=== PATIENT | female | born 1970 | race Caucasian/White ===

== ENCOUNTER 2021-09-17 18:39 | Emergency (ER) | payer MEDICAID, SELFPAY ==
[2021-09-17 18:49] VITALS: BP 114/77; PULSE 92; RESP 15; TEMP 36.6; O2SAT 97; BMI 28.3
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
[2021-09-17 20:43] VITALS: RESP 16
== END 2021-09-17 20:44 | disposition home or self-care (01) ==
PROVIDERS: Emergency Provider Nurse Practitioner Family
DX: Z48.02 Encounter for removal of sutures (principal); S01.81XA Laceration without foreign body of other part of head, initial encounter; V89.2XXA Person injured in unspecified motor-vehicle accident, traffic, initial encounter
CPT/HCPCS: 99282

== ENCOUNTER 2022-09-04 04:00 | Emergency (ER) | payer MEDICARE, MEDICAID, SELFPAY ==
[2022-09-04] VITALS (10 sets, daily range): BP systolic 100–119; BP diastolic 65–76; PULSE 81–90; RESP 12–18; TEMP 37.1; O2SAT 91–96; BMI 30.1
--- NOTE | 2022-09-04 04:03 | XRR_ITS ---
PROCEDURE INFORMATION: Exam: XR Chest Exam date and time: 09/04/2022 4:10 AM Age: 51 years old Clinical indication: Chest pressure; Prior surgery; Surgery type: Cabg. Pacer; Patient HX: C/O chest pain; Additional info: Cp TECHNIQUE: Imaging protocol: Radiologic exam of the chest. Views: 1 view. COMPARISON: No relevant prior studies available. FINDINGS: Tubes, catheters and devices: The heart is large with CABG and vascular calcification with left-sided pacing device. Lungs: Unremarkable. No consolidation. Pleural spaces: Unremarkable. No pleural effusion. No pneumothorax. Heart/Mediastinum: Large heart, as above. Bones/joints: Unremarkable. XR/XR chest 1V portable [id number] IMPRESSION: No acute finding.
--- NOTE | 2022-09-04 04:03 | ECG_ITS ---
[facility] Test Date: 2022-09-04 Pat Name: Bailey Meza Department: Room: Gender: Female Probation Manager: : 1970 Requested By: Stanislav Longoria Order Number: [id number] Jyothi MD: Madelin Bradshaw M.D. Measurements Intervals [place] Rate: 84 P: 26 [place]: 177 QRS: -9 QRSD: 158 T: 70 QT: 432 QTc: 512 Interpretive Statements A sense V paced rhythm ELECTRONIC VENTRICULAR PACEMAKER ABNORMAL RHYTHM ECG No previous ECG available for comparison Electronically Signed On 09-04-2022 12:45:38 FITNESS/WELLNESS DIRECTOR by Madelin Bradshaw M.D. [id number]
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
[2022-09-04 04:17] LABS: Basophils # 0.1 10^3/uL (0.0-0.1); Basophils % 0.7 %; Eosinophils # 0.2 10^3/uL (0.0-0.8); Eosinophils % 2.3 %; Hematocrit 43.3 % (37.0-47.0); Hemoglobin 14.4 g/dL (11.5-15.3); Lymphocytes % 37.8 %; Mean Corpuscular HGB Conc 33.3 g/dL (30.0-36.0); Mean Corpuscular Hemoglobin 30.3 pg (28.0-34.0); Mean Corpuscular Volume 91.2 fl (81-99); Mean Platelet Volume 9.8 fL (7.4-10.4); Monocytes # 0.8 10^3/uL (0.2-0.9); Monocytes % 7.1 %; Neutrophils # 5.53 10^3/uL (1.8-7.7); Neutrophils % 51.9 %; Nucleated Red Blood Cells % 0 %; Platelet Count 338 10^3/cmm (130-400); Red Blood Count 4.75 10^6/uL (4.1-5.3); White Blood Count 10.6 10^3/uL (4.0-10.0)
[2022-09-04 04:39] LABS: Troponin(5th) Baseline 22 ng/L (0-10)
[2022-09-04 04:40] LABS: Alanine Aminotransferase 19 U/L (0-33); Albumin Level 3.8 g/dL (3.5-5.2); Alkaline Phosphatase 135 U/L (35-105); Anion Gap 14.1 (5-19); Aspartate Amino Transferase 20 U/L (0-32); Blood Urea Nitrogen 11 mg/dL (6-20); Calcium 9.5 mg/dL (8.5-10.5); Carbon Dioxide 23 mmol/L (22-29); Chloride 98 mmol/L (98-107); Globulin 3.7 g/dL (1.3-4.6); Glomerular Filtration Rate 104.6 mL/min (90-130); Glucose 366 mg/dL (65-115); Osmolality Calculated 286 mOsm/kg (285-295); Potassium 4.1 mmol/L (3.5-5.1); Sodium 131 mmol/L (136-145); Total Bilirubin 0.2 mg/dL (0.15-1.2); Total Protein 7.5 g/dL (6.6-8.7)
[2022-09-04] MEDS: morphine 4 mg/mL SDV 1 mL IVP (04:45)
[2022-09-04] MEDS: ondansetron 2 mg/ML SDV 2 mL 4 MG IVP (04:45)
--- NOTE | 2022-09-04 06:02 | ECG_ITS ---
[facility] Test Date: 2022-09-04 Pat Name: Bailey Meza Department: Room: Gender: Female Security Architect: : 1970 Requested By: Stanislav Longoria Order Number: [id number] Jyothi MD: Madelin Bradshaw M.D. Measurements Intervals [place] Rate: 84 P: 23 DC: 170 QRS: -6 QRSD: 149 T: 79 QT: 431 QTc: 510 Interpretive Statements ELECTRONIC VENTRICULAR PACEMAKER ABNORMAL RHYTHM ECG No previous ECG available for comparison Electronically Signed On 09-04-2022 16:53:27 PNEUMATIC TOOL OPERATOR by Madelin Bradshaw M.D. [id number]
[2022-09-04 06:39] LABS: Troponin 5 2HR 26.62 ng/L (0-10)
[2022-09-04 06:46] LABS: Troponin 5 2HR Delta 4.62 ABS# (0-10)
--- NOTE | 2022-09-04 07:32 | PC.NURSE ---
Patient wanted to leave AMA due to her feeling better and she was going to call her general machine operator in the morning. This Nurse had the provider speak with the patient. Patient still decided to leave AMA.
== END 2022-09-04 07:34 | disposition left against medical advice (07) ==
PROVIDERS: Emergency Medicine; Emergency Provider Family Medicine
DX: I25.118 Atherosclerotic heart disease of native coronary artery with other forms of angina pectoris (principal); E11.9 Type 2 diabetes mellitus without complications; I10 Essential (primary) hypertension; E78.00 Pure hypercholesterolemia, unspecified; Z53.21 Procedure and treatment not carried out due to patient leaving prior to being seen by health care provider; Z79.02 Long term (current) use of antithrombotics/antiplatelets; Z79.82 Long term (current) use of aspirin; Z79.4 Long term (current) use of insulin; Z95.810 Presence of automatic (implantable) cardiac defibrillator; I25.2 Old myocardial infarction; Z86.73 Personal history of transient ischemic attack (TIA), and cerebral infarction without residual deficits; Z95.1 Presence of aortocoronary bypass graft; F17.210 Nicotine dependence, cigarettes, uncomplicated
CPT/HCPCS: 36415; 71045; 80053; 84484; 85025; 93005; 96374; 96375; 99285; J2270; J2405